=== PATIENT | male | born 1960 | race Caucasian/White ===

== ENCOUNTER 2018-02-12 11:46 | Inpatient (IN) | payer OTHER, SELFPAY ==
[2018-02-12] MEDS ORDERED: Propofol 1,000 MG/100 ML VIAL IV ONE (11:53)
[2018-02-12] MEDS ORDERED: Fentanyl 100 MCG/2 ML VIAL ONE (11:55)
[2018-02-12] MEDS ORDERED: CEFAZOLIN/Water 2 GM/20 ML SYRINGE ONE (11:56)
[2018-02-12] MEDS: fentaNYL Citrate/PF 2,000 MCG in Sodium Chloride 0.9% 60 ML IV SCH (12:36)
[2018-02-12] MEDS ORDERED: Vecuronium 10 MG VIAL ONE (12:47)
[2018-02-12] MEDS ORDERED: Ondansetron ODT 4 MG TAB PO PRN (12:54)
[2018-02-12] MEDS ORDERED: Ventilator Sedation Protocol 1 EACH FS SCH (12:54)
[2018-02-12] MEDS ORDERED: Ondansetron HCl/PF 4 MG/2 ML Vial IVP PRN (12:54)
[2018-02-12] MEDS ORDERED: Dextrose 5% in Water 1,000 ML IV PRN (12:54)
[2018-02-12] MEDS ORDERED: Dextrose 50% Abboject 50 ML SYRINGE SLOW IVP PRN (12:54)
[2018-02-12] MEDS ORDERED: hydrALAZINE 20 MG/ML VIAL SLOW IVP PRN (12:54)
[2018-02-12] MEDS ORDERED: Promethazine HCl 25 MG/ML VIAL IM PRN ×2 (12:54)
[2018-02-12] MEDS ORDERED: Morphine 4 MG/ML VIAL SLOW IVP PRN (13:00)
[2018-02-12] MEDS ORDERED: Propofol BOLUS 1,000 MG/100 ML VIAL IV PRN (13:00)
[2018-02-12] MEDS ORDERED: Fentanyl BOLUS 250 ML IVPB PRN (13:00)
[2018-02-12] MEDS ORDERED: DISCONTINUE PREVIOUS NARCOTIC PAIN MEDICATIONS AND BENZODIAZEPINES FS SCH (13:00)
[2018-02-12] MEDS ORDERED: Morphine 10 MG/ML VIAL SLOW IVP PRN (13:07)
[2018-02-12] MEDS: Sodium Chloride 0.9% 1,000 ML IV SCH ×3 (13:15→22:09)
[2018-02-12 14:07] LABS: Hemoglobin 13.9 g/dL (14.0-18.0)
--- NOTE | 2018-02-12 14:11 | PDOC.OP ---
Operative Note - Operative Note Operative Note: INDICATION: Obtain Additional IV access PROCEDURE PLUGGING MACHINE OPERATOR: Dr. Navid Solano, PGY-1 ATTENDING PHYSICIAN: Dr. Scott Hernandez in Attendance. CONSENT: The procedure was performed while patient was sedated and intubated and the permission was implied because of the emergent nature. PROCEDURE SUMMARY: A time out was performed. My hands were washed immediately prior to the procedure. I wore a surgical cap, mask with protective eyewear, sterile gown and sterile gloves throughout the procedure. The patient was placed in Trendelenburg position. The LEFT chest region was prepped using chlorhexidine scrub and draped in sterile fashion using a three quarter sheet drape and sterile towels. Anesthesia was achieved with 1% lidocaine. The introducer needle was inserted approximately two centimeters lateral to and 1 cm inferior to the normal curvature of the patient's clavicle. Venous blood was withdrawn. The syringe was removed and a guidewire was advanced into the introducer needle. A small incision was made at the skin surface with a scalpel and the introducer needle was exchanged for a dilator over the guidewire. After appropriate dilation was obtained, the dilator was exchanged over the wire for a triple lumen central venous catheter. The wire was removed and the catheter was sutured in place with 3-0 silk. A sterile dressing was placed over the catheter at the insertion site. The patient tolerated the procedure without any hemodynamic compromise. At time of procedure completion, all ports aspirated and flushed properly. Post-procedure chest x-ray shows appropriate placement and no evidence of pneumothorax. Estimated blood loss is 5ml.
--- NOTE | 2018-02-12 14:24 | RAD ---
PORTABLE AP CHEST: Date: 02/12/18 HISTORY: Post line placement. COMPARISON: 02/12/18 at 0950 hours. FINDINGS: Bilateral thoracostomy tubes are again seen, each of which again overlies the lung apices. Superior a spect right lung apex is excluded from view. There does appear to be small left basilar pneumothorax and there is extensive subcutaneous emphysema along the lateral left chest. Several lower left-sided rib fractures are visualized. There has been interval placement of a left subclavian central venous catheter with the tip overlying the expected location of the proximal SVC. Nasogastric tube is again noted in place, but the nasogas tric tube has been withdrawn and the most proximal side port of the nasogastric tube now overlies the region of the expected location of the distal esophagus/GE junction, and the nasogastric tube should be advanced. No pneumothorax or pleural effusion is seen on the right. There are mild increased interstitial densi ties seen in a perihilar location bilaterally, which are overall nonspecific. IMPRESSION: 1. Small left basilar pneumothorax. Left-sided thoracostomy tube is stable in position. 2. Right-sided thoracostomy tube without evidence of a pleural effusion or pneumothorax. 3. The nasogastric tube has been withdrawn from the prior exam and the most proximal side hole overl ies the distal esophagus, and the nasogastric tube should be advanced. 4. Left subclavian central venous catheter in place with tip overlying expected location of the prox imal SVC. 5. Extensive left-sided subcutaneous emphysema. 6. Nondisplaced lateral left 8th and 9th rib fractures. POS: [facility]
[2018-02-12 14:30] LABS: Actual Bicarbonate (HCO3a) 20.5 mEq/L (22-28); Base Excess (BEa) -3.9 mEq/L (-2.0 to +3.0); CO2 Tension 35.4 mmHg (35.0-45.0); Hemoglobin (Hb) 13.8 g/dL (14.0-18.0); O2 Tension (PaO2) 322.1 mmHg (80.0-100.0); pH, Arterial 7.38 (7.35-7.45)
--- NOTE | 2018-02-12 14:30 | RAD ---
AP PELVIS RADIOGRAPH: Date: 02-12-18 History: Acetabular fracture. Comparison: CT pelvis, 02-12-18 at 0854 hours. FINDINGS: Noted on prior CT examination, there is dislocation of the left hip which is displaced superiorly and posteriorly as noted on recent CT scan exam. The fracture fragment seen just lateral and anterior to the left femoral head is also seen on this exam. No additional fracture is appreciated. No dislocati on is seen involving the right hip. A right femoral catheter overlies the inguinal region and right p lenin. Houston catheter with what appears to be temperature probe in place are noted. There is mild res idual contrast in the urinary bladder. Transitional vertebrae is seen at the lumbosacral junction wit h partial sacralization of the L5 vertebral bodies. IMPRESSION: Dislocation left femoral head with evidence of acetabular fracture with fracture fragment displaced s uperiorly and laterally in relation to the supraacetabular region. POS: [facility]
[2018-02-12 14:31] LABS: Calcium, Ionized 1.1 mmol/L (1.12-1.30); Puncture Site RRA
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
[2018-02-12] MEDS ORDERED: Lidocaine 1% (PF) 30 ML VIAL ONE ×2 (15:52→17:03)
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
[2018-02-12] MEDS: Lorazepam 2 MG/ML VIAL SLOW IVP PRN ×2 (15:58→23:03)
[2018-02-12] MEDS ORDERED: Rocuronium Bromide 50 MG/5 ML VIAL ONE (16:07)
[2018-02-12] MEDS ORDERED: CEFAZOLIN/Water 2 GM/20 ML SYRINGE SLOW IVP SCH (16:45)
--- NOTE | 2018-02-12 16:51 | RAD ---
PELVIS ONE VIEW: 02/12/18 HISTORY: Fracture. COMPARISON: Radiograph same day. FINDINGS: Improved alignment of the left posterior hip fracture. There is superolateral displacement of the pos terior wall of acetabulum, although improved. Obturator rings are intact. There is a lumbosacral transitional vertebra with fusion of the enlarged left L5 transverse process with the sacrum. Houston is in place. Small volume contrast within the urinary bladder. IMPRESSION: Improved alignment of the reduced left hip. POS: [facility]
[2018-02-12 18:46] LABS: Hemoglobin 12.9 g/dL (14.0-18.0)
[2018-02-12] MEDS ORDERED: Famotidine/PF 20 mg/2ml Vial SLOW IVP SCH (21:00)
[2018-02-12] MEDS: Pantoprazole 40 MG VIAL IVP SCH (21:04)
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
[2018-02-13 01:15] LABS: Hemoglobin 11.8 g/dL (14.0-18.0)
[2018-02-13] MEDS: fentaNYL Citrate/PF 2,000 MCG in Sodium Chloride 0.9% 60 ML IV SCH ×2 (01:21→13:05)
[2018-02-13] MEDS: Propofol 1,000 MG/100 ML VIAL IV PRN ×3 (01:31→22:06)
[2018-02-13 03:30] LABS: #Eosinphils 0.1 thou/uL (0.0-0.7); #Lymphocytes 1.2 thou/uL (1.20-3.40); #Monocytes 0.6 thou/uL (0.11-0.59); #Neutrophils 5.6 thou/uL (1.40-6.50); %Basophils 0.2 % (0.0-1.0); %Eosinophils 1.7 % (0.0-10.0); %Lymphocytes 15.7 % (21.0-51.0); %Monocytes 8.1 % (0.0-10.0); %Neutrophils 74.2 % (42.0-75.0); Hemoglobin 11.3 g/dL (14.0-18.0); Mean Corpuscular HGB CONC 33.8 g/dL (32.0-36.0); Mean Corpuscular Hemoglobin 30.9 pg (27.0-31.0); Mean Corpuscular Volume 91.4 fL (78.0-98.0); Mean Platelet Volume 7.2 fL (7.4-10.4); Platelet Count 125 thou/uL (130-400); RBC Distribution Width 14.2 % (11.5-14.5); Red Blood Cell (RBC) Count 3.67 mill/uL (4.70-6.10); White Blood Cell (WBC) Count 7.5 thou/uL (4.8-10.8)
[2018-02-13 03:48] LABS: Anion Gap 8 mmol/L (10-20); BUN (Urea Nitrogen) 19 mg/dL (8.4-25.7); Calc. Creatinine Clearance 123 mL/min (70-130); Calcium 7.5 mg/dL (7.8-10.44); Carbon Dioxide 24 mmol/L (22-29); Chloride 112 mmol/L (98-107); Estimated GFR-MDRD Greater than 90; Glucose 98 mg/dL (70-105); Magnesium 1.7 mg/dL (1.6-2.6); Phosphorus 2.9 mg/dL (2.3-4.7); Potassium 3.8 mmol/L (3.5-5.1); Sodium 140 mmol/L (136-145)
[2018-02-13 07:02] LABS: Actual Bicarbonate (HCO3a) 21.2 mEq/L (22-28); Base Excess (BEa) -3.5 mEq/L (-2.0 to +3.0); Hemoglobin (Hb) 11.9 g/dL (14.0-18.0); O2 Tension (PaO2) 61.9 mmHg (80.0-100.0); pH, Arterial 7.38 (7.35-7.45)
[2018-02-13 07:03] LABS: Calcium, Ionized 1.1 mmol/L (1.12-1.30); Puncture Site RRA
[2018-02-13 07:21] LABS: Hemoglobin 11.3 g/dL (14.0-18.0)
[2018-02-13 07:33] LABS: Magnesium 1.8 mg/dL (1.6-2.6); Phosphorus 2.4 mg/dL (2.3-4.7)
--- NOTE | 2018-02-13 08:27 | RAD ---
AP VIEW CHEST: Date: 02/13/18 INDICATION: Chest tube placement. COMPARISON: Prior exam dated 02/12/18. FINDINGS: There has been interval placement of a new left-sided thoracostomy catheter. Previously seen left-payton ed pneumothorax is no longer demonstrated. Right-sided thoracostomy tube and the superiormost left-si ded thoracostomy tube are unchanged in position. Left subclavian central venous catheter and ET tube are unchanged. There are numerous cardiac leads overlying the patient. Gastric catheter projects belo w the left hemidiaphragm and in the region of the gastric body. Heart size is within normal limits. T here is some crowding of the pulmonary vasculature which may reflect a component of pulmonary vascula r congestion. IMPRESSION: 1. New left-sided thoracostomy tube with no evidence of pneumothorax. 2. The previously seen superiormost left-sided thoracostomy tube and right-sided thoracostomy tube a re unchanged, and the ET tube, left subclavian central venous catheter, and gastric catheter are unch anged. 3. Some crowding of the pulmonary vasculature, some of which may be related to poor inspiration; how ever, pulmonary vascular congestion possibly from volume overload is a consideration. Continued follo w-up is recommended. POS: [facility]
[2018-02-13] MEDS: Aspirin 300 MG Suppository PR SCH (08:48)
[2018-02-13] MEDS: Pantoprazole 40 MG VIAL IVP SCH ×2 (08:51→22:02)
[2018-02-13] MEDS ORDERED: Midazolam HCl 5 mg/5 ml Vial ONE (08:54)
[2018-02-13] MEDS ORDERED: Fentanyl 100 MCG/2 ML VIAL ONE (08:57)
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
[2018-02-13] MEDS ORDERED: Potassium Chloride 40 MEQ in Premix Bag 1 BAG IVPB SCH (10:45)
[2018-02-13] MEDS ORDERED: Magnesium Sulfate 3 GM in Sodium Chloride 0.9% 100 ML IVPB SCH (10:45)
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
[2018-02-13] MEDS: Sodium Chloride 0.9% 1,000 ML IV SCH (12:44)
[2018-02-13 13:07] LABS: CO2 Tension 43.6 mmHg (35.0-45.0); O2 Tension (PaO2) 55.6 mmHg (80.0-100.0); pH, Arterial 7.32 (7.35-7.45)
[2018-02-13 13:08] LABS: Actual Bicarbonate (HCO3a) 21.9 mEq/L (22-28); Base Excess (BEa) -4.1 mEq/L (-2.0 to +3.0); Hemoglobin (Hb) 12.1 g/dL (14.0-18.0)
[2018-02-13 13:09] LABS: Calcium, Ionized 1.1 mmol/L (1.12-1.30); Puncture Site RRA
--- NOTE | 2018-02-13 13:36 | RAD ---
2 VIEWS LEFT HIP: Date: 02/13/18 COMPARISON: 02/12/18. HISTORY: Open reduction and internal fixation left hip fracture. FINDINGS/IMPRESSION: Multiple limited intraoperative fluoroscopic views of the left hip submitted for interpretation. Victoria ent is status post open reduction and internal fixation of previously seen fracture of left hip joint with a plate and screws. No perihardware lucency is identified. POS: [facility]
[2018-02-13] MEDS ORDERED: Ondansetron HCl/PF 4 MG/2 ML Vial ONE (15:18)
[2018-02-13] MEDS ORDERED: Calcium Chloride 1 GM/10 ML Abboject SYRINGE IVP SCH (15:45)
--- NOTE | 2018-02-13 16:16 | CT ---
CT PELVIS WITHOUT CONTRAST: 02/13/18 HISTORY: ORIF acetabulum. Reduction. Evaluate hardware. COMPARISON: None. FINDINGS: There is satisfactory reduction of the left hip joint. The posterior acetabular wall fracture is sati sfactory alignment. There are two separate intra-articular fracture fragments. The first is at the fo angel measuring 0.4 x 1.1 cm. The second is along the acetabular fossa. Measures 1.9 x 0.5 cm. A smalle r punctate fracture fragment is within the posterior joint, along the lunate surface measuring 0.3 x 0.2 cm. SI joints are normal. The pubic symphysis is normal. A right iliac vascular catheter is in place. The re is presacral retroperitoneal hematoma. There is a fascial degloving injury along the right gluteus fascia. IMPRESSION: 1. Satisfactory reduction left hip with multiple intra-articular fracture fragments as above. 2. Fascial degloving injury along the right thigh. 3. Bilateral L4 pars interarticularis defects and grade I anterolisthesis. POS: [facility]
[2018-02-13] MEDS ORDERED: Hydrocortisone Sod Succ/PF 100 mg/2 ml Vial IVP SCH ×2 (17:45→20:00)
[2018-02-13 17:55] LABS: Hemoglobin 10.2 g/dL (14.0-18.0)
[2018-02-13] MEDS ORDERED: Sodium Chloride 0.9% 500 ML IVPB SCH (19:30)
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
[2018-02-14] MEDS: Sodium Chloride 0.9% 1,000 ML IV SCH ×4 (00:13→23:59)
[2018-02-14] MEDS: Hydrocortisone Sod Succ/PF 100 mg/2 ml Vial IVP SCH ×3 (00:13→11:58)
[2018-02-14] MEDS: fentaNYL Citrate/PF 2,000 MCG in Sodium Chloride 0.9% 60 ML IV SCH ×2 (01:46→19:05)
[2018-02-14 04:28] LABS: #Lymphocytes 0.4 thou/uL (1.20-3.40); #Monocytes 0.5 thou/uL (0.11-0.59); %Eosinophils 0.1 % (0.0-10.0); %Lymphocytes 4.7 % (21.0-51.0); %Neutrophils 89.1 % (42.0-75.0); Hemoglobin 9.4 g/dL (14.0-18.0); Mean Corpuscular Hemoglobin 31.8 pg (27.0-31.0); Mean Corpuscular Volume 90.8 fL (78.0-98.0); Mean Platelet Volume 7.4 fL (7.4-10.4); Platelet Count 118 thou/uL (130-400); RBC Distribution Width 13.8 % (11.5-14.5); Red Blood Cell (RBC) Count 2.96 mill/uL (4.70-6.10)
[2018-02-14 04:41] LABS: Anion Gap 10 mmol/L (10-20); BUN (Urea Nitrogen) 12 mg/dL (8.4-25.7); Calc. Creatinine Clearance 127 mL/min (70-130); Calcium 7.9 mg/dL (7.8-10.44); Carbon Dioxide 23 mmol/L (22-29); Chloride 111 mmol/L (98-107); Estimated GFR-MDRD Greater than 90; Glucose 131 mg/dL (70-105); Phosphorus 2.3 mg/dL (2.3-4.7); Potassium 4.3 mmol/L (3.5-5.1); Sodium 140 mmol/L (136-145)
[2018-02-14 07:22] LABS: Actual Bicarbonate (HCO3a) 23.5 mEq/L (22-28); Base Excess (BEa) -0.6 mEq/L (-2.0 to +3.0); CO2 Tension 36.8 mmHg (35.0-45.0); Hemoglobin (Hb) 10.1 g/dL (14.0-18.0); O2 Tension (PaO2) 63.1 mmHg (80.0-100.0); pH, Arterial 7.42 (7.35-7.45)
[2018-02-14 07:23] LABS: Calcium, Ionized 1.1 mmol/L (1.12-1.30); Puncture Site RRA
--- NOTE | 2018-02-14 08:30 | RAD ---
SINGLE VIEW OF THE CHEST: COMPARISON: 02/13/18. HISTORY: Chest tube placement for pneumothorax. FINDINGS: A single view of the chest shows a normal-sized cardiomediastinal silhouette. The lines and tubes ar e unchanged in position. Air is seen along the left chest wall. No obvious pneumothorax is seen. IMPRESSION: Stable exam. POS: [facility]
[2018-02-14] MEDS: Aspirin 300 MG Suppository PR SCH (08:38)
[2018-02-14] MEDS: Pantoprazole 40 MG VIAL IVP SCH ×2 (08:38→21:21)
[2018-02-14] MEDS ORDERED: Lidocaine 1% w/Epinephrine 1:200K 30 ML VIAL FS SCH (09:45)
[2018-02-14] MEDS ORDERED: Midazolam HCl 2 mg/2 ml Vial IVP SCH ×2 (09:45→10:00)
[2018-02-14] MEDS ORDERED: Vecuronium 10 MG VIAL IV SCH (09:45)
[2018-02-14] MEDS ORDERED: Sterile Water 10 ML VIAL FS SCH (10:00)
[2018-02-14] MEDS ORDERED: Lidocaine 1% w/Epinephrine 1:100K 20 ML VIAL FS SCH (10:00)
--- NOTE | 2018-02-14 10:26 | PRG ---
DATE OF SERVICE: 02/14/2018 SUBJECTIVE: Kameron is a 57-year-old male who is postop day #1 from open reduction internal fixation lef t posterior wall acetabulum. He is currently convalescing in the intensive care unit with sedation a nd intubation. His incision is clean, no complaints from nursing staff. OBJECTIVE: No strike through. No active bleeding. ASSESSMENT: A 57-year-old male postoperative day 1, left hemipelvis open reduction internal fixation . PLAN: Continue current care. I believe the patient is scheduled for tracheostomy today. We will re check tomorrow.
[2018-02-14] MEDS: Albumin 5% 500 ML ONE ×2 (10:30→10:40)
[2018-02-14] MEDS: Fentanyl 100 MCG/2 ML VIAL SLOW IVP SCH ×2 (10:56→11:30)
--- NOTE | 2018-02-14 11:58 | RAD ---
SINGLE VIEW OF THE ABDOMEN: COMPARISON: None. HISTORY: Feeding tube placement. FINDINGS: A single view of the abdomen shows a nonspecific, nonobstructed bowel gas pattern. A Dobbhoff tube i s seen overlying the left upper quadrant of the abdomen, likely within the stomach. Hardware is seen in the left pelvis. IMPRESSION: Dobbhoff tube located in the stomach. POS: [facility]
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
[2018-02-14] MEDS: Ketorolac Tromethamine 30 MG/ML VIAL IVP SCH ×2 (17:40→23:59)
[2018-02-14] MEDS: HYDROcodone/Acetaminophen 10/325 mg Tablet PO SCH ×2 (17:42→23:59)
--- NOTE | 2018-02-14 20:13 | RAD ---
SINGLE VIEW OF THE CHEST: 02/14/18 COMPARISON: 01/14/18 HISTORY: Dobhoff tube placement. FINDINGS: Single view of the chest shows a normal sized cardiomediastinal silhouette. A Dobhoff tube is seen in the left upper quadrant of the abdomen, likely within the stomach. The chest tubes are unchanged in positive. Increased interstitial lung markings are present. IMPRESSION: Dobhoff tube located in the stomach. POS: [facility]
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
[2018-02-15 04:40] LABS: #Eosinphils 0.2 thou/uL (0.0-0.7); #Lymphocytes 0.9 thou/uL (1.20-3.40); #Monocytes 0.6 thou/uL (0.11-0.59); #Neutrophils 7.7 thou/uL (1.40-6.50); %Basophils 0.1 % (0.0-1.0); %Eosinophils 2.1 % (0.0-10.0); %Monocytes 6.3 % (0.0-10.0); %Neutrophils 81.5 % (42.0-75.0); Mean Corpuscular HGB CONC 35.1 g/dL (32.0-36.0); Mean Corpuscular Hemoglobin 31.8 pg (27.0-31.0); Mean Corpuscular Volume 90.8 fL (78.0-98.0); Mean Platelet Volume 7.2 fL (7.4-10.4); Platelet Count 124 thou/uL (130-400); RBC Distribution Width 13.6 % (11.5-14.5); Red Blood Cell (RBC) Count 2.51 mill/uL (4.70-6.10); White Blood Cell (WBC) Count 9.4 thou/uL (4.8-10.8)
[2018-02-15 05:10] LABS: Anion Gap 11 mmol/L (10-20); BUN (Urea Nitrogen) 11 mg/dL (8.4-25.7); Calc. Creatinine Clearance 136 mL/min (70-130); Calcium 7.8 mg/dL (7.8-10.44); Carbon Dioxide 23 mmol/L (22-29); Chloride 112 mmol/L (98-107); Estimated GFR-MDRD Greater than 90; Glucose 99 mg/dL (70-105); Magnesium 1.9 mg/dL (1.6-2.6); Phosphorus 1.6 mg/dL (2.3-4.7); Potassium 3.6 mmol/L (3.5-5.1); Sodium 142 mmol/L (136-145)
[2018-02-15] MEDS ORDERED: Potassium Phosphate 30 MMOL in Sodium Chloride 0.9% 500 ML IVPB SCH (05:30)
[2018-02-15] MEDS: Ketorolac Tromethamine 30 MG/ML VIAL IVP SCH ×4 (06:01→23:39)
[2018-02-15] MEDS: HYDROcodone/Acetaminophen 10/325 mg Tablet PO SCH ×4 (06:01→23:38)
[2018-02-15] MEDS: Sodium Chloride 0.9% 1,000 ML IV SCH ×3 (08:35→19:35)
[2018-02-15] MEDS: Pantoprazole 40 MG VIAL IVP SCH ×2 (08:40→20:52)
--- NOTE | 2018-02-15 09:31 | RAD ---
SINGLE VIEW OF THE CHEST: COMPARISON: 02/14/18. HISTORY: Pneumothorax with chest tube placement. FINDINGS: A single view of the chest shows a normal-size cardiomediastinal silhouette. The endotracheal tube h as been removed and a tracheostomy is seen with its tip in the trachea. A Dobbhoff tube has been exc hanged for the patient's NG tube. The other lines and tubes are unchanged in position. There is ext ensive air along the bilateral chest gandhi. No pneumothorax is seen, but evaluation is limited give n the extensive subcutaneous air. IMPRESSION: Stable exam status post tracheostomy and Dobbhoff tube placement. POS: [facility]
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
[2018-02-15] MEDS: Aspirin 300 MG Suppository PR SCH (13:53)
[2018-02-15] MEDS ORDERED: Magnesium Sulfate 2 GM, Admixture Fee 1 EACH in Sodium Chloride 0.9% 100 ML IVPB SCH (14:00)
[2018-02-15] MEDS: fentaNYL Citrate/PF 2,000 MCG in Sodium Chloride 0.9% 60 ML IV SCH (19:32)
[2018-02-15] MEDS: Enoxaparin Sodium 40 MG/0.4 ML SYRINGE SC SCH (20:52)
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
[2018-02-16 05:05] LABS: #Eosinphils 0.3 thou/uL (0.0-0.7); #Monocytes 0.4 thou/uL (0.11-0.59); %Basophils 0.1 % (0.0-1.0); %Eosinophils 3.3 % (0.0-10.0); %Monocytes 3.9 % (0.0-10.0); %Neutrophils 82.7 % (42.0-75.0); Hemoglobin 8.6 g/dL (14.0-18.0); Mean Corpuscular HGB CONC 33.8 g/dL (32.0-36.0); Mean Corpuscular Volume 91.7 fL (78.0-98.0); Mean Platelet Volume 7.1 fL (7.4-10.4); Platelet Count 177 thou/uL (130-400); RBC Distribution Width 13.8 % (11.5-14.5); Red Blood Cell (RBC) Count 2.78 mill/uL (4.70-6.10); White Blood Cell (WBC) Count 9.7 thou/uL (4.8-10.8)
[2018-02-16 05:24] LABS: Anion Gap 11 mmol/L (10-20); BUN (Urea Nitrogen) 13 mg/dL (8.4-25.7); Calc. Creatinine Clearance 149 mL/min (70-130); Calcium 7.9 mg/dL (7.8-10.44); Carbon Dioxide 25 mmol/L (22-29); Chloride 111 mmol/L (98-107); Estimated GFR-MDRD Greater than 90; Glucose 116 mg/dL (70-105); Magnesium 1.9 mg/dL (1.6-2.6); Potassium 3.5 mmol/L (3.5-5.1); Sodium 143 mmol/L (136-145)
[2018-02-16] MEDS: Ketorolac Tromethamine 30 MG/ML VIAL IVP SCH ×4 (05:57→23:30)
[2018-02-16] MEDS: HYDROcodone/Acetaminophen 10/325 mg Tablet PO SCH ×4 (06:04→19:25)
[2018-02-16] MEDS: Sodium Chloride 0.9% 1,000 ML IV SCH ×4 (06:17→23:33)
[2018-02-16] MEDS ORDERED: Potassium Phosphate 30 MMOL, Magnesium Sulfate 4 GM in Sodium Chloride 0.9% 250 ML 250 ML IVPB SCH (08:15)
--- NOTE | 2018-02-16 08:29 | RAD ---
FRONTAL RADIOGRAPH CHEST: Date: 02/16/18 COMPARISON: 02/15/18. HISTORY: Chest tube. FINDINGS: There is a stable chest tube on the right. Two stable chest tubes are present on the left. Tracheosto my tube is in stable position. Left-sided vascular catheter and Dobbhoff feeding tube are present, un changed. Supine imaging limits assessment for pneumothorax and pleural fluid. There is extensive subc utaneous emphysema throughout the chest bilaterally. The degree of subcutaneous emphysema within the chest wall limits assessment of the lung parenchyma. There does appear to be stable, nonspecific inte rstitial opacities in the perihilar regions and both lung bases, right greater than left. IMPRESSION: Lines and tubes as above. Nonspecific pulmonary parenchymal interstitial opacity. Large volume subcut aneous emphysema seen throughout the chest wall bilaterally. POS: [facility]
[2018-02-16] MEDS: Pantoprazole 40 MG VIAL IVP SCH ×2 (09:00→20:06)
[2018-02-16] MEDS: Aspirin 300 MG Suppository PR SCH (09:00)
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
[2018-02-16] MEDS: Diabetic Tussin 200 MG/10 ML UDCUP PO SCH ×3 (10:24→22:27)
[2018-02-16] MEDS: cloNIDine 0.2 MG TAB PO SCH ×3 (10:25→22:27)
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
[2018-02-16] MEDS ORDERED: Hydrocodone-Acetamin 15 ML UDCUP PO SCH (19:45)
[2018-02-16] MEDS: Enoxaparin Sodium 40 MG/0.4 ML SYRINGE SC SCH (20:06)
[2018-02-17] MEDS ORDERED: Hydrocodone-Acetamin 15 ML UDCUP PO SCH (01:00)
[2018-02-17] MEDS: Diabetic Tussin 200 MG/10 ML UDCUP PO SCH ×2 (02:43→10:22)
[2018-02-17] MEDS: cloNIDine 0.2 MG TAB PO SCH ×3 (02:43→15:59)
[2018-02-17 03:08] LABS: Actual Bicarbonate (HCO3a) 27.6 mEq/L (22-28); Base Excess (BEa) 1.3 mEq/L (-2.0 to +3.0); CO2 Tension 52.4 mmHg (35.0-45.0); pH, Arterial 7.34 (7.35-7.45)
[2018-02-17 03:09] LABS: Hemoglobin (Hb) 9.8 g/dL (14.0-18.0)
[2018-02-17 03:10] LABS: Calcium, Ionized 1.1 mmol/L (1.12-1.30)
[2018-02-17 03:11] LABS: Puncture Site LBR
[2018-02-17] MEDS ORDERED: Lorazepam 2 MG/ML VIAL SLOW IVP PRN (03:23)
[2018-02-17] MEDS ORDERED: Propofol 1,000 MG/100 ML VIAL IV PRN (03:23)
[2018-02-17] MEDS ORDERED: Fentanyl BOLUS 250 ML IVPB PRN (03:23)
[2018-02-17] MEDS ORDERED: fentaNYL Citrate/PF 2,000 MCG in Sodium Chloride 0.9% 60 ML IV SCH (03:23)
[2018-02-17] MEDS ORDERED: Propofol BOLUS 1,000 MG/100 ML VIAL IV PRN (03:23)
[2018-02-17] MEDS ORDERED: DISCONTINUE PREVIOUS NARCOTIC PAIN MEDICATIONS AND BENZODIAZEPINES FS SCH (03:23)
[2018-02-17 04:17] LABS: pH, Arterial 7.44 (7.35-7.45)
[2018-02-17 04:18] LABS: Base Excess (BEa) 1.7 mEq/L (-2.0 to +3.0); CO2 Tension 39.3 mmHg (35.0-45.0); Hemoglobin (Hb) 8.6 g/dL (14.0-18.0); O2 Tension (PaO2) 68.8 mmHg (80.0-100.0)
[2018-02-17 04:19] LABS: Calcium, Ionized 1.1 mmol/L (1.12-1.30)
[2018-02-17 04:20] LABS: ALV-art Gradient 309.875 (0-20); Puncture Site R RADIAL
[2018-02-17 05:24] LABS: Anion Gap 8 mmol/L (10-20); BUN (Urea Nitrogen) 16 mg/dL (8.4-25.7); Calc. Creatinine Clearance 157 mL/min (70-130); Calcium 7.6 mg/dL (7.8-10.44); Carbon Dioxide 28 mmol/L (22-29); Chloride 110 mmol/L (98-107); Estimated GFR-MDRD Greater than 90; Glucose 151 mg/dL (70-105); Magnesium 1.9 mg/dL (1.6-2.6); Phosphorus 2.5 mg/dL (2.3-4.7); Potassium 4.1 mmol/L (3.5-5.1); Sodium 142 mmol/L (136-145)
[2018-02-17] MEDS ORDERED: Hydrocortisone Sod Succ/PF 100 mg/2 ml Vial IVP SCH ×3 (08:00→16:00)
[2018-02-17] MEDS ORDERED: Hydrocortisone Sod Succ/PF 500 mg/4 ml Vial SLOW IVP SCH (08:15)
[2018-02-17] MEDS: Aspirin 300 MG Suppository PR SCH (09:07)
[2018-02-17] MEDS: Pantoprazole 40 MG VIAL IVP SCH (09:08)
[2018-02-17] MEDS: Ketorolac Tromethamine 30 MG/ML VIAL IVP SCH ×2 (09:08→12:13)
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
--- NOTE | 2018-02-17 09:26 | RAD ---
FRONTAL RADIOGRAPH CHEST: Date: 02/17/18 COMPARISON: 02/16/18. HISTORY: Evaluate lung parenchyma, chest tube. FINDINGS: There are two chest tubes on the left and one chest tube on the right. There is large volume subcutan eous emphysema throughout the imaged neck and chest, limiting detailed assessment. There is a probabl e tiny lateral pneumothorax on the right. Stable left vascular catheter, tracheostomy tube, and Dobbh off feeding tube. There is interstitial and alveolar opacity present in the mid lung zones and bilate ral lung bases, nonspecific, right greater than left. IMPRESSION: Lines and tubes as above. Probably tiny pneumothorax seen laterally on the right. Subcutaneous emphys rah, which limits detailed assessment. Continued follow-up advised. POS: [facility]
[2018-02-17] MEDS ORDERED: Sodium Phosphate 20 MMOL, Magnesium Sulfate 4 GM in Sodium Chloride 0.9% 250 ML 250 ML IVPB SCH (09:30)
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
[2018-02-17 12:10] VITALS: TEMP 99.5
[2018-02-17] MEDS: Sodium Chloride 0.9% 1,000 ML IV SCH (12:14)
[2018-02-17 12:17] VITALS: BMI 25.9
[2018-02-17 15:03] VITALS: BP 113/62
== END 2018-02-17 15:53 | disposition short-term general hospital (02) | DRG 3 ==
LOC: ERS 11:46 → CCU 12:21 → SURG A 02-16 18:03 → CCU 02-16 21:27
PROVIDERS: ADMIT Surgery; ATTEND Surgery
PROC: 02HV33Z Insertion of Infusion Device into Superior Vena Cava, Percutaneous Approach (ICD-10-PCS; 2018-02-12)
PROC: 0W9B30Z Drainage of Left Pleural Cavity with Drainage Device, Percutaneous Approach (ICD-10-PCS; 2018-02-12)
PROC: 0QS5XZZ Reposition Left Acetabulum, External Approach (ICD-10-PCS; 2018-02-12)
PROC: 2W6 Placement, Anatomical Regions, Traction (ICD-10-PCS; 2018-02-12)
PROC: 0QS504Z Reposition Left Acetabulum with Internal Fixation Device, Open Approach (ICD-10-PCS; 2018-02-13)
PROC: 0B113F4 Bypass Trachea to Cutaneous with Tracheostomy Device, Percutaneous Approach (ICD-10-PCS; principal; 2018-02-14)
PROC: 5A1945Z Respiratory Ventilation, 24-96 Consecutive Hours (ICD-10-PCS; 2018-02-14)
PROC: 0BJ08ZZ Inspection of Tracheobronchial Tree, Via Natural or Artificial Opening Endoscopic (ICD-10-PCS; 2018-02-14)
PROC: 5A09357 Assistance with Respiratory Ventilation, Less than 24 Consecutive Hours, Continuous Positive Airway Pressure (ICD-10-PCS; 2018-02-16)
DX: S27.2XXA Traumatic hemopneumothorax, initial encounter (principal); S32.422A Displaced fracture of posterior wall of left acetabulum, initial encounter for closed fracture; J96.01 Acute respiratory failure with hypoxia; J86.0 Pyothorax with fistula; R40.2212 Coma scale, best verbal response, none, at arrival to emergency department; S06.0X9A Concussion with loss of consciousness of unspecified duration, initial encounter; S22.42XA Multiple fractures of ribs, left side, initial encounter for closed fracture; S15.091A Other specified injury of right carotid artery, initial encounter; D62 Acute posthemorrhagic anemia; S02.413A LeFort III fracture, initial encounter for closed fracture; S02.19XA Other fracture of base of skull, initial encounter for closed fracture; S02.40EA Zygomatic fracture, right side, initial encounter for closed fracture; T79.7XXA Traumatic subcutaneous emphysema, initial encounter; S02.2XXA Fracture of nasal bones, initial encounter for closed fracture; S76.891A Other injury of other specified muscles, fascia and tendons at thigh level, right thigh, initial encounter; E83.42 Hypomagnesemia; E87.6 Hypokalemia; E83.39 Other disorders of phosphorus metabolism; S01.81XA Laceration without foreign body of other part of head, initial encounter; V89.2XXA Person injured in unspecified motor-vehicle accident, traffic, initial encounter; Y92.410 Unspecified street and highway as the place of occurrence of the external cause; J43.9 Emphysema, unspecified; G93.89 Other specified disorders of brain; R40.2132 Coma scale, eyes open, to sound, at arrival to emergency department; R40.2362 Coma scale, best motor response, obeys commands, at arrival to emergency department; B18.2 Chronic viral hepatitis C; E78.5 Hyperlipidemia, unspecified; F19.10 Other psychoactive substance abuse, uncomplicated; F10.20 Alcohol dependence, uncomplicated; F14.10 Cocaine abuse, uncomplicated; F17.210 Nicotine dependence, cigarettes, uncomplicated; Z83.3 Family history of diabetes mellitus; Z97.8 Presence of other specified devices; Z87.11 Personal history of peptic ulcer disease; Z82.49 Family history of ischemic heart disease and other diseases of the circulatory system; Z88.6 Allergy status to analgesic agent
CPT/HCPCS: 71045; 72170; 72192; 74018; 76001; 80048; 82533; 82805; 83735; 83880; 84100; 85014; 85018; 85025; 86850; 86900; 86901; 94002; 94003; 94640; 94660; 96374; 96375; 96376; A4216; C1713; C9113; G0390; G8978-GP-CM; G8979-GP-CK; G8987-GO-CK; G8988-GO-CJ; G8996-GN-CN; G8997-GN-CL; J1642; J1650; J1720; J1885; J2001; J2060; J2250; J2270; J2405; J2704; J3010; J3475; J3480; J7050; J7620; L0639; P9045

== ENCOUNTER 2018-04-29 12:13 | Outpatient (CLI) | payer OTHER | END 2018-04-29 12:14 | disposition home or self-care (01) | LOC: BICRAD 12:13 | PROVIDERS: ATTEND Family Medicine | DX: T07.XXXA Unspecified multiple injuries, initial encounter (principal); S22.059A Unspecified fracture of T5-T6 vertebra, initial encounter for closed fracture | CPT/HCPCS: 72072 ==

== ENCOUNTER 2018-06-13 15:36 | Emergency (ER) | payer OTHER, SELFPAY ==
[~2018-06-13 15:36] MED LIST: ISOVUE-370 76%-LOCM 1 ML ONE
[2018-06-13 16:16] LABS: #Eosinphils 0.5 thou/uL (0.0-0.7); #Lymphocytes 2.1 thou/uL (1.20-3.40); #Monocytes 0.7 thou/uL (0.11-0.59); #Neutrophils 7.8 thou/uL (1.40-6.50); %Basophils 0.2 % (0.0-1.0); %Eosinophils 4.2 % (0.0-10.0); %Lymphocytes 19.1 % (21.0-51.0); %Monocytes 6.1 % (0.0-10.0); %Neutrophils 70.4 % (42.0-75.0); Hemoglobin 17.7 g/dL (14.0-18.0); Mean Corpuscular HGB CONC 33.3 g/dL (32.0-36.0); Mean Corpuscular Hemoglobin 29.1 pg (27.0-31.0); Mean Corpuscular Volume 87.3 fL (78.0-98.0); Mean Platelet Volume 6.6 fL (7.4-10.4); Platelet Count 382 thou/uL (130-400); RBC Distribution Width 12.8 % (11.5-14.5); White Blood Cell (WBC) Count 11.1 thou/uL (4.8-10.8)
[2018-06-13 16:36] LABS: ALT (SGPT) 31 U/L (8-55); AST (SGOT) 13 U/L (5-34); Albumin 4.6 g/dL (3.5-5.0); Alkaline Phosphatase 117 U/L (40-150); Anion Gap 12 mmol/L (10-20); BUN (Urea Nitrogen) 21 mg/dL (8.4-25.7); Bilirubin, Total 1.1 mg/dL (0.2-1.2); Calc. Creatinine Clearance 0 mL/min (70-130); Calcium 9.9 mg/dL (7.8-10.44); Carbon Dioxide 25 mmol/L (22-29); Chloride 105 mmol/L (98-107); Estimated GFR-MDRD Greater than 90; Globulin 3.4 g/dL (2.4-3.5); Glucose 96 mg/dL (70-105); Lipase 15 U/L (8-78); Potassium 3.8 mmol/L (3.5-5.1); Sodium 138 mmol/L (136-145)
[2018-06-13] MEDS ORDERED: Ondansetron HCl/PF 4 MG/2 ML Vial ONE (17:42)
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
[2018-06-13 19:16] LABS: Bilirubin Negative (Negative); Blood, Urine Negative (Negative); Clarity CLEAR (Clear); Glucose, Urine (Dipstick) Negative (Negative); Leukocyte Negative (Negative); Nitrite Negative (Negative); Protein, Urine (Dipstick) Negative (Neg-Trace); Urobilinogen 0.2 mg/dL (0.2-1.0)
[2018-06-13 19:19] LABS: Specific Gravity, Urine Greater than 1.060 (1.002-1.036)
[2018-06-13] MEDS ORDERED: traMADol HCl 50 MG TAB ONE (22:12)
== END 2018-06-13 22:10 | disposition home or self-care (01) ==
LOC: ERS 15:36
DX: R11.2 Nausea with vomiting, unspecified (principal); Z87.891 Personal history of nicotine dependence; Z79.899 Other long term (current) drug therapy
CPT/HCPCS: 36415; 74177; 80053; 81003; 83690; 85025; 96361; 96374; 96375; J2270; J2405

== ENCOUNTER 2018-06-25 08:04 | Outpatient (CLI) | payer OTHER ==
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
== END 2018-06-25 08:05 | disposition home or self-care (01) ==
LOC: SCSCT 08:04
PROVIDERS: ATTEND Family Medicine
DX: I77.71 Dissection of carotid artery (principal)
CPT/HCPCS: 70498

== ENCOUNTER 2018-07-03 13:49 | Outpatient (CLI) | payer OTHER ==
--- NOTE | 2018-07-03 15:34 | MRI ---
LUMBAR SPINE MRI NONCONTRAST: INDICATION: Pain. Vertebral compression fracture. FINDINGS: There is grade I spondylolisthesis at L5-S1. Associated bilateral L5 pars defect are present. Conus medullaris is normal in morphology and terminates at the L2 level. There is no evidence of com pression fracture. L5-S1: There is mild effacement of the thecal sac due to disk-osteophyte complex. As a result of th e above-described spondylolisthesis, there is moderate left and mild right neural foraminal narrowing . L4-5: Broad-based disk-osteophyte mildly effaces the ventral thecal sac. There is minimal narrowing of the right neural foramen. No high grade left foraminal stenosis. At the L1-2, L2-3, and L3-4 levels, there are minimal bulging disks without significant central canal or neural foraminal stenosis. IMPRESSION: Grade I spondylolisthesis at L5-S12 with associated bilateral L5 pars defects. Spondylolisthesis res ults in moderate left foraminal compromise of L5-S1 level. POS: [facility]
--- NOTE | 2018-07-03 15:36 | MRI ---
MRI THORACIC SPINE WITHOUT CONTRAST 07/03/18 HISTORY: M48.50XA - vertebral compression fracture. COMPARISON: CT angiogram 06/25/18. FINDINGS: There is a similar appearance of the fracture of the T6 vertebrae with asymmetric left worse than ri ght sided height loss. The left sided height loss is approximately 50% and the right sided height los s is only 10-15%. This appears to be in the coronal oblique plane. There is mild edema of the fractur e. There is low grade retropulsion posterior inferior end plate with minimal effacement of the ventra l CSF space. Neural foramina are not significantly narrowed. Healing compression fracture of the superior end plates of T4 on T5 with minimal height loss. The aortic contour is nonaneurysmal. Paraspinal musculature is normal. IMPRESSION: 1. Similar height loss since 06/25/18 and progressive height loss since 02/12/18 of the subtype A2 pincer impaction type fracture of the T6 vertebral body. There is minimal effacement of the ventral CSF space due to focal kyphosis. 2. Healing compression deformities of T5 and T6 superior end plates with minimal height loss. 3. No acute superimposed fracture or malalignment. POS: [facility]
== END 2018-07-03 13:50 | disposition home or self-care (01) ==
LOC: SCSMRI 13:49
PROVIDERS: ATTEND Family Medicine
DX: M48.56XA Collapsed vertebra, not elsewhere classified, lumbar region, initial encounter for fracture (principal); M48.54XA Collapsed vertebra, not elsewhere classified, thoracic region, initial encounter for fracture; M40.204 Unspecified kyphosis, thoracic region; M43.17 Spondylolisthesis, lumbosacral region
CPT/HCPCS: 72146; 72148

== ENCOUNTER 2018-08-04 11:00 | Emergency (ER) | payer OTHER, SELFPAY ==
[2018-08-04] MEDS ORDERED: Lidocaine 1% PF 5 ML VIAL ONE (11:14)
== END 2018-08-04 11:45 | disposition home or self-care (01) ==
LOC: SCSER 11:00
DX: Z48.815 Encounter for surgical aftercare following surgery on the digestive system (principal); Z48.01 Encounter for change or removal of surgical wound dressing
CPT/HCPCS: 12001; J2001

== ENCOUNTER 2018-09-16 11:04 | Emergency (ER) | payer SELFPAY | END 2018-09-16 13:01 | disposition home or self-care (01) | LOC: SCSER 11:04 | DX: Z48.817 Encounter for surgical aftercare following surgery on the skin and subcutaneous tissue (principal); Z87.891 Personal history of nicotine dependence; Z79.891 Long term (current) use of opiate analgesic; Z79.899 Other long term (current) drug therapy | CPT/HCPCS: 99282 ==